=== PATIENT | male | born 1955 | race American Indian/Alaskan Native ===

== ENCOUNTER 2017-04-11 22:40 | Emergency (ER) | payer OTHER, MEDICAID ==
--- NOTE | 2017-04-12 00:30 | EDM.PDOC ---
ED HPI GENERAL MEDICAL PROBLEM - General Chief Complaint: Chest Pain Stated Complaint: [facility] Time Seen by Provider: 04/11/17 23:00 Source of Information: Reports: Patient, EMS History Limitations: Reports: No Limitations - History of Present Illness INITIAL COMMENTS - FREE TEXT/NARRATIVE: 62-year-old male brought in by EMS with intense sudden epigastric discomfort. He has had this several times in the past, it resolved prior to arriving to the hospital. No significant radiation of pain. He feels like his upper body goes "weak". 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 He did have mendez tonight which he tends to react to. Also drinking more coffee today than usual. Onset: Sudden Location: Reports: Abdomen Quality: Reports: Sharp, Stabbing Severity: Moderate Improves with: Reports: None Worsens with: Reports: None Associated Symptoms: Reports: No Other Symptoms Chest Pain Score (Numeric/FACES): 7 - Related Data Allergies Allergy/AdvReac Type Severity Reaction Status Date / Time No Known Allergies Allergy Verified 04/11/17 22:56 Home Meds: Home Meds . [Unable to Verify Home Med List] 04/11/17 [History] Past Medical History HEENT History: Reports: Glaucoma, Impaired Vision Other HEENT History: uses eye drops d/t previous left eye injury. Musculoskeletal History: Reports: Fracture - Past Surgical History GI Surgical History: Reports: Appendectomy Musculoskeletal Surgical History: Reports: Other (See Below) Other Musculoskeletal Surgeries/Procedures:: left hand surgery Social & Family History - Tobacco Use Smoking Status *Q: Light Tobacco Smoker Years of Tobacco use: 15 Packs/Tins Daily: 0.3 - Alcohol Use Days Per Week of Alcohol Use: 1 Number of Drinks Per Day: 1 Total Drinks Per Week: 1 - Recreational Drug Use Recreational Drug Use: No ED ROS GENERAL - Review of Systems Review Of Systems: See Below Constitutional: Denies: Fever, Chills, Malaise HEENT: Reports: No Symptoms Respiratory: Denies: Shortness of Breath, Cough Cardiovascular: Denies: Chest Pain GI/Abdominal: Reports: Abdominal Pain. Denies: Nausea, Vomiting Musculoskeletal: Reports: No Symptoms Skin: Reports: No Symptoms Neurological: Reports: No Symptoms Psychiatric: Reports: No Symptoms ED EXAM, GENERAL - Physical Exam Exam: See Below Exam Limited By: No Limitations General Appearance: Alert, No Apparent Distress Eye Exam: Bilateral Eye: EOMI Neck: Normal Inspection Respiratory/Chest: No Respiratory Distress, Lungs Clear Cardiovascular: Regular Rate, Rhythm GI/Abdominal: Normal Bowel Sounds, Soft, Non-Tender Extremities: Normal Inspection Neurological: Alert, Oriented Psychiatric: Normal Affect, Normal Mood Skin Exam: Warm, Dry Course - Vital Signs Last Recorded V/S: Last Vital Signs Temp 96.8 F 04/11/17 22:54 Pulse 70 04/12/17 00:00 Resp 24 H 04/12/17 00:00 BP 136/89 04/12/17 00:00 Pulse Ox 97 04/12/17 00:00 - Orders/Labs/Meds Orders: Active Orders 24 hr Category Date Time Status EKG Documentation Completion [RC] ASDIRECTED Care 04/11/17 23:25 Active EKG 12 Lead [EK] Routine Ther 04/11/17 23:25 Ordered Labs: Laboratory Tests 04/11/17 04/11/17 04/11/17 Range/Units 23:44 23:44 23:44 WBC 9.9 (4.5-11.0) K/uL RBC 5.24 (4.30-5.90) M/uL Hgb 16.7 H (12.0-15.0) g/dL Hct 45.7 (40.0-54.0) % MCV 87 (80-98) fL MCH 32 H (27-31) pg MCHC 37 H (32-36) % Plt Count 256 (150-400) K/uL Neut % (Auto) 67 H (36-66) % Lymph % (Auto) 22 L (24-44) % Kimble % (Auto) 8 H (2-6) % Eos % (Auto) 3 (2-4) % Baso % (Auto) 0 (0-1) % Sodium 141 (140-148) mmol/L Potassium 3.5 L (3.6-5.2) mmol/L Chloride 106 (100-108) mmol/L Carbon Dioxide 25 (21-32) mmol/L Anion Gap 13.5 (5.0-14.0) mmol/L BUN 9 (7-18) mg/dL Creatinine 0.9 (0.8-1.3) mg/dL Est Cr Clr Drug Dosing 88.31 mL/min Estimated GFR (MDRD) > 60 (>60) Glucose 101 (74-106) mg/dL Calcium 9.3 (8.5-10.1) mg/dL Total Bilirubin 1.6 H (0.2-1.0) mg/dL AST 23 (15-37) U/L ALT 31 (12-78) U/L Alkaline Phosphatase 84 (46-116) U/L Troponin I < 0.017 (0.000-0.056) ng/mL Total Protein 7.1 (6.4-8.2) g/dL Albumin 3.7 (3.4-5.0) g/dL Globulin 3.4 (2.3-3.5) g/dL Albumin/Globulin Ratio 1.1 L (1.2-2.2) Amylase 33 (25-115) U/L Lipase 223 (73-393) U/L Ethyl Alcohol 3 mg/dL - Re-Assessments/Exams Free Text/Narrative Re-Assessment/Exam: 04/12/17 06:55 Exam is now normal. EKG is stable, normal. Patient was observed for one hour while a CBC, CMP, amylase, troponin, and EtOH were obtained. All were reassuring other than an elevated bilirubin of 1.6. There were no past levels to compare to. Explained to the patient that this is likely esophageal spasm, but a follow-up with his primary care provider to discuss a gallbladder ultrasound or other workup may be indicated if symptoms recur. Departure - Departure Time of Disposition: 00:40 Disposition: Home, Self-Care 01 Condition: Good Clinical Impression: Abdominal pain Qualifiers: Abdominal location: epigastric Qualified Code(s): R10.13 - Epigastric pain - Discharge Information Instructions: Nonspecific Chest Pain, [id number] Referrals: PCP,None [Primary Care Provider] - Forms: ED Department Discharge Care Plan Goals: That daily antacid such as Zantac or Prilosec for 1-2 weeks may be beneficial. Try a drink of cold water if pain recurs and return if pain is persistent or you develop other concerns. - My Orders Last 24 Hours: My Active Orders 04/11/17 23:25 EKG Documentation Completion [RC] ASDIRECTED EKG 12 Lead [EK] Routine - Assessment/Plan Last 24 Hours: My Active Orders 04/11/17 23:25 EKG Documentation Completion [RC] ASDIRECTED EKG 12 Lead [EK] Routine
== END 2017-04-12 00:40 | disposition home or self-care (01) ==
LOC: JP.ED 22:40
DX: R10.13 Epigastric pain (principal); F17.210 Nicotine dependence, cigarettes, uncomplicated
CPT/HCPCS: 36415; 80053; 82150; 83690; 84484; 85025; 93005; 99285; G0480; 93010; 99284

== ENCOUNTER 2022-07-25 07:47 | Day surgery (SDC) | payer MEDICARE ==
[2022-07-25] MEDS ORDERED: fentaNYL 50 MCG/ML SDV ONE (08:09)
[2022-07-25] MEDS ORDERED: Midazolam 1 MG/ML 2 ML SDV ONE (08:09)
[2022-07-25] MEDS ORDERED: Propofol 200 MG/20 ML SDV ONE (08:09)
[2022-07-25] MEDS ORDERED: Lactated Ringers 1,000 ML IV SCH (08:15)
== END 2022-07-25 10:55 | disposition home or self-care (01) ==
LOC: JP.SDS 07:47
PROVIDERS: ATTEND Family Medicine
DX: Z12.11 Encounter for screening for malignant neoplasm of colon (principal); I71.40 Abdominal aortic aneurysm, without rupture, unspecified; F17.200 Nicotine dependence, unspecified, uncomplicated; Z88.0 Allergy status to penicillin; Z86.010 Personal history of colon polyps
CPT/HCPCS: G0121; J2250; J2704; J3010; J7120

== ENCOUNTER 2024-05-04 06:17 | Emergency (ER) | payer MEDICARE ==
[2024-05-04] MEDS: LORazepam 1 MG Tab PO ONE (07:33)
[2024-05-04] MEDS ORDERED: hydrOXYzine HCl 25 MG Tab PO PRN (08:27)
[2024-05-04] MEDS ORDERED: Ibuprofen 600 MG Tab PO PRN (08:27)
[2024-05-04] MEDS ORDERED: Loratadine 10 MG Tab PO PRN (08:31)
[2024-05-04] MEDS: Dorzolamide/Timolol 2%-0.5% Ophth Soln 10 ML Bottle EYELF SCH (09:19)
[2024-05-04] MEDS: Tamsulosin 0.4 MG Cap.ER PO SCH (09:27)
[2024-05-04] MEDS ORDERED: LURASIDONE HCL 40 MG PO SCH (17:00)
[2024-05-04] MEDS ORDERED: Divalproex Sodium 250 MG Tab.ER PO SCH (21:00)
[2024-05-04] MEDS ORDERED: traZODone 50 MG Tab PO SCH (21:00)
[2024-05-04] MEDS ORDERED: Divalproex Sodium Delayed-Release 250 MG Tab.CR PO SCH (21:00)
== END 2024-05-04 11:20 | disposition home or self-care (01) ==
LOC: JP.ED 06:17
DX: R45.851 Suicidal ideations (principal); I10 Essential (primary) hypertension; Z90.49 Acquired absence of other specified parts of digestive tract; Z79.899 Other long term (current) drug therapy
CPT/HCPCS: 99284; A9270

== ENCOUNTER 2024-05-16 05:48 | Emergency (ER) | payer MEDICARE ==
[2024-05-16 07:44] LABS: AMPHETAMINES SCREEN, URINE NEGATIVE (NEGATIVE); BARBITURATE SCREEN,URINE NEGATIVE (NEGATIVE); BENZODIAZEPINES SCREEN,URINE NEGATIVE (NEGATIVE); METHADONE SCREEN, URINE NEGATIVE (NEGATIVE); METHAMPHETAMINES SCREEN, URINE NEGATIVE (NEGATIVE); OXYCODONE SCREEN,URINE NEGATIVE (NEGATIVE); PROPOXYPHENE SCREEN,URINE NEGATIVE (NEGATIVE); THC SCREEN,URINE 50 NG/ML NEGATIVE (NEGATIVE)
[2024-05-16 07:46] LABS: A/G RATIO 1.1 (1.2-2.2); ALANINE AMINOTRANSFERASE,ALT 33 U/L (12-78); ALKALINE PHOSPHATASE 105 U/L (46-116); ANION GAP 7.6 mmol/L (5.0-14.0); ASPARTATE AMNIOTRANSFERASE,AST 23 U/L (15-37); BILIRUBIN TOTAL 2.1 mg/dL (0.2-1.0); BLOOD UREA NITROGEN,BUN 11 mg/dL (7-18); CALCIUM 9.7 mg/dL (8.5-10.1); CARBON DIOXIDE,CO2 30 mmol/L (21-32); CHLORIDE,CL 102 mmol/L (100-108); CREATININE 1.2 mg/dL (0.8-1.3); EST CRCL DRUG DOSING (CG) 57.96 mL/min; ESTIMATED GFR 65 mL/min (>60); GLUCOSE RANDOM 112 mg/dL (74-106); POTASSIUM,K 3.9 mmol/L (3.6-5.2); PROTEIN TOTAL,TP 7.6 g/dL (6.4-8.2); SODIUM,NA 140 mmol/L (140-148)
[2024-05-16 07:49] LABS: BASOPHILS ABSOLUTE AUTO 0.04 K/uL (0.00-0.10); BASOPHILS PERCENT AUTO 0.5 % (0.1-1.3); EOSINOPHILS ABSOLUTE AUTO 0.21 K/uL (0.00-0.40); EOSINOPHILS PERCENT AUTO 2.6 % (0.0-5.4); HEMATOCRIT 50.2 % (38.4-49.7); IMMATURE GRAN ABSOLUTE AUTO 0.06 K/uL (0.00-0.23); IMMATURE GRAN PERCENT AUTO 0.7 % (0.0-0.7); LYMPHOCYTES ABSOLUTE AUTO 2.07 K/uL (0.8-3.3); LYMPHOCYTES PERCENT AUTO 25.8 % (11.4-47.7); MEAN CORPUSCULAR HEMOGLOBIN 32.5 pg (31.6-35.5); MEAN CORPUSCULAR HGB CONC 38.2 g/dL (31.6-35.5); MEAN CORPUSCULAR VOLUME 84.9 fL (81.4-99.0); MONOCYTES ABSOLUTE AUTO 0.62 K/uL (0.20-0.90); MONOCYTES PERCENT AUTO 7.7 % (3.3-12.6); NEUTROPHILS ABSOLUTE AUTO 5.02 K/uL (1.0-7.6); NEUTROPHILS PERCENT AUTO 62.7 % (40.0-78.1); PLATELET COUNT,PLT 212 K/uL (130-375); RED BLOOD CELL COUNT 5.91 M/uL (4.14-5.76)
[2024-05-16 07:54] LABS: HEMOGLOBIN 19.2 g/dL (12.9-16.9)
[2024-05-16] MEDS: LORazepam 2 MG/ML SDV IM ONE (08:17)
== END 2024-05-16 15:09 ==
LOC: JP.ED 05:48
DX: R45.851 Suicidal ideations (principal); I10 Essential (primary) hypertension; F17.210 Nicotine dependence, cigarettes, uncomplicated; Z90.49 Acquired absence of other specified parts of digestive tract; Z79.899 Other long term (current) drug therapy
CPT/HCPCS: 36415; 80053; 80305; 85025; 93005; 96372; 99285; J2060

== ENCOUNTER 2024-07-24 17:30 | Emergency (ER) | payer MEDICARE, MEDICAID ==
[2024-07-24] MEDS: hydrOXYzine HCl 25 MG Tab PO ONE (18:42)
[2024-07-24] MEDS: ARIPiprazole 10 MG Tab PO ONE (18:43)
== END 2024-07-24 18:47 | disposition home or self-care (01) ==
LOC: JP.ED 17:30
DX: F41.9 Anxiety disorder, unspecified (principal); I10 Essential (primary) hypertension; F17.210 Nicotine dependence, cigarettes, uncomplicated; Z90.49 Acquired absence of other specified parts of digestive tract; Z79.899 Other long term (current) drug therapy
CPT/HCPCS: 99284; A9270

== ENCOUNTER 2024-07-26 07:04 | Emergency (ER) | payer MEDICARE, MEDICAID ==
[2024-07-26] MEDS: LORazepam 2 MG/ML SDV IM ONE (07:57)
== END 2024-07-26 08:10 | disposition home or self-care (01) ==
LOC: JP.ED 07:04
DX: F41.9 Anxiety disorder, unspecified (principal); I10 Essential (primary) hypertension; K21.9 Gastro-esophageal reflux disease without esophagitis; Z90.49 Acquired absence of other specified parts of digestive tract; Z79.899 Other long term (current) drug therapy
CPT/HCPCS: 96372; 99283; J2060